=== PATIENT | male | born 1995 | race Asian ===

== ENCOUNTER 2017-04-30 00:44 | Emergency (ER) | payer OTHER ==
[~2017-04-30] VITALS: Ht 172.7 cm; Wt 55.7 kg
[2017-04-30 00:55] VITALS: Ht 172.7 cm; Wt 55.7 kg
[2017-04-30] MEDS ORDERED: SODIUM CHLORIDE 0.9% 1000ML 1,000 ML IV STA ×2 (01:40→03:27)
[2017-04-30] MEDS ORDERED: KETOROLAC TROMETHAMINE 30 MG/ML VIAL IV STA (01:40)
--- NOTE | 2017-04-30 01:52 | EMERGENCY ROOM VISIT NOTE ---
History Report prepared by Lesly: Donnie Ernandez Under the Supervision of: Dr. Holly Pinto D.O. First contact with patient: 01:19 Chief Complaint: ILLNESS Stated Complaint: FEVER, GLOVER, SORE THROAT, BITTER TASTE IN MOUTH History of Present Illness The patient is a 22 year old male who presents to the Emergency Room with complaints of a fever that began three days ago. In triage, the patient's temperature was 37.5 C. His symptoms have progressed into a severe sore throat, chills, and body aches. He notes that he has a bitter taste in his mouth and has been experiencing a foul smell from the area. He denies any past surgeries. He denies any abdominal pain, melena, diarrhea, hematochezia, or abnormal urinary symptoms. Source of History: patient Onset: 3 days ago Position: other (Global) Symptom Intensity: 37.5 C Quality: other (Fever) Timing: constant Associated Symptoms: + chills, No melena, No hematochezia, No diarrhea, No urinary symptoms Note: He is experiencing body aches, a bitter taste in his mouth, and a foul odor from his mouth. Review of Systems See HPI for pertinent positives & negatives. A total of 10 systems reviewed and were otherwise negative. Past Medical & Surgical Medical Problems: (1) No Known Active Medical Problems Family History Patient reports no known family medical history. Social History Smoking Status: Never Smoker Smokeless Tobacco Use: No Drug Use: none Marital Status: single Occupation Status: student Current/Historical Medications Scheduled [[place]], PO PRN Allergies Coded Allergies: No Known Allergies (Unverified , 04/30/17) Physical Exam Vital Signs Date Time Temp Pulse Resp B/P (MAP) Pulse Ox O2 Delivery O2 Flow Rate FiO2 04/30/17 04:14 97 21 97 04/30/17 04:01 110/62 04/30/17 03:59 92 20 97 04/30/17 03:44 93 17 97 04/30/17 03:31 118/71 04/30/17 03:29 97 23 98 04/30/17 03:14 98 28 98 04/30/17 03:01 04/30/17 03:00 37.6 97 18 109/60 97 Room Air 04/30/17 02:59 103 27 97 04/30/17 02:44 110 21 97 04/30/17 02:31 113/71 04/30/17 02:29 109 32 98 04/30/17 02:17 116/69 04/30/17 02:14 103 29 98 04/30/17 01:59 112 21 98 04/30/17 01:44 109 26 99 04/30/17 01:31 111/58 04/30/17 01:29 116 30 98 04/30/17 01:22 114/66 04/30/17 01:10 115 04/30/17 01:08 122/71 04/30/17 00:55 37.5 130 24 104/63 98 Room Air Physical Exam HEENT: Head - normocephalic and atraumatic Pupils are equal, round, and reactive to light. Extraocular eye muscles are intact, and sclera are anicteric. Nose - moist nasal mucosa without discharge. Mouth - moist buccal mucosa. Oropharynx is nonerythematous and there is mild tonsillar exudate without edema. Neck: Supple, anterior and posterior cervical lymphadenopathy; no nuchal rigidity. Heart: Tachycardic rate and regular rhythm. There is a normal S1 and S2 with no murmurs, clicks, or gallops appreciated. Lungs: Clear to auscultation bilaterally with no wheezes, rales, or rhonchi. Abdomen: Soft, completely nontender, nondistended, with good bowel sounds. There are no palpable pulsatile masses or hepatosplenomegaly. There is no guarding, rigidity, or rebound noted. Extremities: No evidence of cyanosis, clubbing, or edema. There are easily palpable peripheral pulses. Skin: Pale, warm and dry with good turgor and no rashes. Medical Decision & Procedures ER Provider Diagnostic Interpretation: Radiology results as stated below per my review and the radiologist's interpretation: CHEST ONE VIEW PORTABLE CLINICAL HISTORY: 22 years-old Male presenting with Sepsis. TECHNIQUE: Portable upright AP view of the chest was obtained. COMPARISON: 04/30/2017. FINDINGS: Cardiomediastinal silhouette normal. Lungs and pleural spaces clear. Osseous structures normal. Upper abdomen normal. IMPRESSION: 1. No acute cardiopulmonary disease. Electronically signed by: Christiano Arriaga M.D. 04/30/2017 6:37 AM Dictated Date/Time: 04/30/2017 6:37 AM Laboratory Results 04/30/17 01:21 Red Blood Count 4.28, Mean Corpuscular Volume 85.0, Mean Corpuscular Hemoglobin 30.4, Mean Corpuscular Hemoglobin Concent 35.7, Mean Platelet Volume 9.8 04/30/17 01:21 Test 04/30/17 01:21 04/30/17 01:30 04/30/17 01:52 White Blood Count 8.14 K/uL (4.8-10.8) Red Blood Count 4.28 M/uL (4.7-6.1) Hemoglobin 13.0 g/dL (14.0-18.0) Hematocrit 36.4 % (42-52) Mean Corpuscular Volume 85.0 fL (80-100) Mean Corpuscular Hemoglobin 30.4 pg (25-34) Mean Corpuscular Hemoglobin Concent 35.7 g/dl (32-36) Platelet Count 139 K/uL (130-400) Mean Platelet Volume 9.8 fL (7.4-10.4) RDW Standard Deviation 38.5 fL (36.4-46.3) RDW Coefficient of Variation 12.5 % (11.5-14.5) Neutrophils % (Manual) 40.0 % Lymphocytes % (Manual) 1.8 % Variant Lymphocytes % (manual) 56.4 % Monocytes % (Manual) 1.8 % Neutrophils # (Manual) 3.26 K/uL (1.4-6.5) Total Absolute Neutrophils 3.26 K/uL (1.4-6.5) Lymphocytes # (Manual) 0.15 K/uL (1.2-3.4) Absolute Variant Lymphocytes 4.59 K/uL Total Absolute Lymphocytes 4.74 K/uL (1.2-3.4) Monocytes # (Manual) 0.15 K/uL (0.11-0.59) Red Blood Cell Morphology Unremarkable Prothrombin Time 11.8 SECONDS (9.0-12.0) Prothromb Time International Ratio 1.1 (0.9-1.1) Activated Partial Thromboplast Time 29.2 SECONDS (21.0-31.0) Partial Thromboplastin Ratio 1.1 Anion Gap 12.0 mmol/L (3-11) Est Creatinine Clear Calc Drug Dose 91.1 ml/min Estimated GFR () 122.7 Estimated GFR (Non- 105.8 BUN/Creatinine Ratio 11.6 (10-20) Calcium Level 8.6 mg/dl (8.5-10.1) Total Bilirubin 0.6 mg/dl (0.2-1) Aspartate Amino Transf (AST/SGOT) 46 U/L (15-37) Alanine Aminotransferase (ALT/SGPT) 69 U/L (12-78) Alkaline Phosphatase 74 U/L (45-117) Total Protein 7.5 gm/dl (6.4-8.2) Albumin 3.8 gm/dl (3.4-5.0) Globulin 3.7 gm/dl (2.5-4.0) Albumin/Globulin Ratio 1.0 (0.9-2) Chemistry Specimen Hemolysis Monoscreen POS (NEG) Influenza Type A Antigen Neg for Influ A (NEG) Influenza Type B Antigen Neg for Influ B (NEG) Bedside Lactic Acid Venous 2.16 mmol/L (0.90-1.70) Laboratory results per my review. Medications Administered Medications (Trade) Dose Ordered Sig/Cliff Route Start Time Stop Time Status Last Admin Dose Admin Ketorolac Tromethamine (Toradol Inj) 30 mg NOW STAT IV 04/30/17 01:40 04/30/17 01:41 DC 04/30/17 02:05 30 MG Sodium Chloride 1,000 ml @ 999 mls/hr Q1H1M STAT IV 04/30/17 01:40 04/30/17 02:40 DC 04/30/17 02:03 999 MLS/HR Acetaminophen (Tylenol Tab) 1,000 mg NOW STAT PO 04/30/17 02:08 04/30/17 02:10 DC 04/30/17 02:38 1,000 MG Sodium Chloride 1,000 ml @ 999 mls/hr Q1H1M STAT IV 04/30/17 03:27 04/30/17 04:27 DC 04/30/17 03:27 999 MLS/HR Procedure Sodium Chloride 1000 ml @ 999 mls/hr IV Toradol Inj 30 mg IV Tylenol Tab 1000 mg PO Sodium Chloride 1000 ml @ 999 mls/hr IV ED Course 0119: Past medical records reviewed. The patient was evaluated in room B6. A complete history and physical exam was performed. A septic protocol was performed. I swabbed the patient's throat for strep. He has chest x-ray as described above. 0140: Ordered Sodium Chloride 1000 ml @ 999 mls/hr IV, Toradol Inj 30 mg IV 0156: The patient's Lactic Acid is 2.6 and his rapid strep was negative. 0208: Ordered Tylenol Tab 1000 mg PO 0327: Ordered additional Sodium Chloride 1000 ml @ 999 mls/hr IV 0415: The patient was able to drink liquids. Upon reevaluation, the patient feels much better. I discussed findings and results with him. He verbalized agreement of the treatment plan. He was discharged home. Medical Decision The patient is a 22 year old male who presents to the ED with a fever. Differential diagnosis includes strep pharyngitis, mono, influenza, and sepsis. Laboratory Results: [place] spot positive, influenza negative, lactic acid 2.16, glucose 114, normal renal function, normal LFTs, no leukocytosis, stable H&H. This is a 22-year-old male patient who presents to the emergency department after increasing fever and severe sore throat. The patient describes a foul- smelling breath. He had no significant tonsillar exudate noted but had both anterior/posterior cervical lymphadenopathy concerning for mono. Monospot testing was positive. The patient was fluid rehydrated and had significant improvement in his symptoms after receiving IV analgesia. I spent some time talking to the patient about mononucleosis and the hazards of splenic rupture. He was instructed to avoid any traumatic injuries. I explained to him that he should return to the emergency department immediately developed any increasing upper abdominal pain. Otherwise, he could use Tylenol or Motrin for pain and keep himself well-hydrated and rest. Medication Reconcilliation Current Medication List: was personally reviewed by me Blood Pressure Screening Patient's blood pressure: Normal blood pressure Blood pressure disposition: Did not require urgent referral Impression Primary Impression: Mononucleosis Scribe Attestation The scribe's documentation has been prepared under my direction and personally reviewed by me in its entirety. I confirm that the note above accurately reflects all work, treatment, procedures, and medical decision making performed by me. Departure Information Dispostion Home / Self-Care Referrals No Doctor, Assigned (PCP) Forms HOME CARE DOCUMENTATION FORM, IMPORTANT VISIT INFORMATION, WORK / SCHOOL INSTRUCTIONS Patient Instructions ED Mononucleosis, My [facility] Additional Instructions Rest take plenty of clear liquids Avoid any trauma to your chest/abdomen for next 2 months Take motrin or tylenol for throat pain Return to the ER IMMEDIATELY if you develop any left sided abdominal pain
[2017-04-30 01:58] LABS: HEMATOCRIT 36.4 % (42-52); MEAN CORPUSCULAR HEMOGLOBIN 30.4 pg (25-34); MEAN CORPUSCULAR HGB CONC 35.7 g/dl (32-36); MEAN PLATELET VOLUME 9.8 fL (7.4-10.4); PLATELET COUNT 139 K/uL (130-400); RED BLOOD COUNT 4.28 M/uL (4.7-6.1); WHITE BLOOD COUNT 8.14 K/uL (4.8-10.8)
[2017-04-30 02:08] LABS: INR 1.1 (0.9-1.1); PARTIAL THROMBOPLASTIN RATIO 1.1; PROTHROMBIN TIME (PATIENT) 11.8 SECONDS (9.0-12.0)
[2017-04-30] MEDS ORDERED: ACETAMINOPHEN 500 MG TAB PO STA (02:08)
[2017-04-30 02:30] LABS: BUN/CREATININE RATIO 11.6 (10-20); CALCIUM 8.6 mg/dl (8.5-10.1); CREATININE 1.01 mg/dl (0.60-1.40); POTASSIUM 3.8 mmol/L (3.5-5.1)
[2017-04-30] MEDS ORDERED: [UNRECOGNIZED DRUG - REMARK] PO (02:50)
[2017-04-30 03:00] VITALS: TEMP 37.6
[2017-04-30 03:01] LABS: COMPLETE YES; LYMPH ABS # 0.15 K/uL (1.2-3.4); LYMPHOCYTE % 1.8 %; VARIANT LYM ABS # 4.59 K/uL; VARIANT LYMPHOCYTE % 56.4 %
[2017-04-30 04:01] VITALS: BP 110/62
[2017-04-30 04:14] VITALS: PULSE 97; O2SAT 97
--- NOTE | 2017-04-30 06:39 | DIAGNOSTIC IMAGING REPORT ---
CHEST ONE VIEW PORTABLE CLINICAL HISTORY: 22 years-old Male presenting with Sepsis. TECHNIQUE: Portable upright AP view of the chest was obtained. COMPARISON: 04/30/2017. FINDINGS: Cardiomediastinal silhouette normal. Lungs and pleural spaces clear. Osseous structures normal. Upper abdomen normal. IMPRESSION: 1. No acute cardiopulmonary disease. Electronically signed by: Christiano Arriaga M.D. 04/30/2017 6:37 AM Dictated Date/Time: 04/30/2017 6:37 AM
== END 2017-04-30 04:30 | disposition home or self-care (01) ==
LOC: C.EDB 00:45
DX: B27.90 Infectious mononucleosis, unspecified without complication (principal)